=== PATIENT | female | born 1980 | race Caucasian/White ===

== ENCOUNTER 2021-02-09 18:12 | Emergency (ER) | payer OTHER, BC ==
--- NOTE | 2021-02-09 19:02 | XR ---
EXAMINATION TYPE: XR chest 2V DATE OF EXAM: 02/09/2021 COMPARISON: NONE HISTORY: Difficulty breathing TECHNIQUE: 2 views FINDINGS: There is coarse interstitial infiltrate in both lungs. Heart size is normal. Bony thorax is intact. There is no pleural effusion. IMPRESSION: Bilateral interstitial and patchy pneumonia. Normal heart.
--- NOTE | 2021-02-09 19:10 | ED ---
General Adult HPI - General Chief complaint: Shortness of Breath Stated complaint: SOB Time Seen by Provider: 02/09/21 18:32 Source: patient, EMS, RN notes reviewed, old records reviewed Mode of arrival: EMS Limitations: no limitations - History of Present Illness Initial comments: 41-year-old female presenting with 5 days of cough, mild dyspnea, sore throat, myalgias. Patient uncertain if she has been exposed to anyone with coronavirus. She has had fevers and some diarrhea. No vomiting. No central chest pain. Asked medical history of asthma. - Related Data Allergies Allergy/AdvReac Type Severity Reaction Status Date / Time codeine AdvReac Unknown Verified 02/09/21 18:26 sulfamethoxazole AdvReac Unknown Verified 02/09/21 18:26 [From Bactrim] trimethoprim [From Bactrim] AdvReac Unknown Verified 02/09/21 18:26 Review of Systems ROS Statement: Those systems with pertinent positive or pertinent negative responses have been documented in the HPI. ROS Other: All systems not noted in ROS Statement are negative. 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 Absent: tenderness, meningismus Respiratory exam: Present: rhonchi, decreased breath sounds. Absent: re spiratory distress Cardiovascular Exam: Present: normal rhythm, tachycardia GI/Abdominal exam: Present: soft. Absent: distended, tenderness, guarding Extremities exam: Present: normal inspection, normal capillary refill. Absent: pedal edema Neurological exam: Present: alert, oriented X3, CN II-XII intact. Absent: motor sensory deficit Psychiatric exam: Present: normal affect, normal mood Skin exam: Present: warm, dry, intact. Absent: cyanosis, diaphoretic Course Vital Signs 02/09/21 02/09/21 18:17 19:50 Temperature 100.6 F H Pulse Rate 112 H 107 H Respiratory 20 20 Rate Blood Pressure 135/80 136/71 O2 Sat by Pulse 92 L 93 L Oximetry Medical Decision Making - Medical Decision Making 41-year-old female with concern for coronavirus. Patient has an oxygenation of 92-93% on room air with no respiratory distress. X-ray does show minimal bilateral pneumonia. She has coronavirus positive. I did offer monoclonal an tibodies given the patient's medical conditions and she does qualify. She agrees with infusion. She will be transfused monoclonal antibodies. She will monitor symptoms at home. She will return with any worsening or changing symptoms. - Lab Data Lab Results 02/09/21 Range/Units 19:22 Coronavirus (PCR) Detected A (Not Detectd) Disposition Clinical Impression: Pneumonia due to COVID-19 virus Disposition: HOME SELF-CARE Condition: Fair Instructions (If sedation given, give patient instructions): Coronavirus Disease 2019 (COVID-19) Additional Instructions: Please take [id number] vitamin D, zinc and vitamin C. Please return with any worsening difficulty breathing or shortness of breath. Is patient prescribed a controlled substance at d/c from ED?: No Referrals: Usama Juarez DO [Primary Care Provider] - 1-2 days
[2021-02-09] MEDS ORDERED: BAMLANIVIMAB (EUA) 700 MG, ETESEVIMAB (EUA) 1,400 MG in SODIUM CHLORIDE 0.9% 50 ML IVPB ONE (20:20)
[2021-02-09 20:53] VITALS: RESP 18
[2021-02-09 23:09] VITALS: BP 128/74; PULSE 89; TEMP 99.3
== END 2021-02-09 23:09 | disposition home or self-care (01) ==
LOC: EC 18:12 → SUPCPDRO 18:12 → EC 23:09
DX: U07.1 COVID-19 (principal); J12.82 Pneumonia due to coronavirus disease 2019; F32.9 Major depressive disorder, single episode, unspecified; J45.909 Unspecified asthma, uncomplicated; Z87.891 Personal history of nicotine dependence
CPT/HCPCS: 87635; 71046; 99285; 96365; Q0245

== ENCOUNTER 2021-02-16 13:14 | Inpatient (IN) | payer OTHER, BC ==
--- NOTE | 2021-02-16 13:39 | ED ---
SOB HPI - General Chief Complaint: Shortness of Breath Stated Complaint: RUTH, Covid + Time Seen by Provider: 02/16/21 13:20 Source: EMS Mode of arrival: EMS Limitations: no limitations - History of Present Illness Initial Comments: 41-year-old female with past history of asthma, morbid obesity who presents emergency room with reported shortness of breath. Patient was diagnosed with Covid on February 09. She has had symptoms since February 05. She was seen in the emergency department and given Bam infusion. States that she is presenting again today for worsening breathing. Patient reports exertional shortness of breath. Denies any chest pain. No ALLERGIES swelling. No history of DVT or PE. She denies any current fevers. No nausea or vomiting. Since her pulse ox has been going into the 80s at home. No concerning for however has fuller d some persistent vaginal bleeding. She has not been using her inhalers. No other alleviating, precipitating or modifying factors - Related Data Home Medications Medication Instructions Recorded Confirmed Albuterol Sulfate [Ventolin HFA] 2 puff INHALATION RT-QID PRN 02/16/21 02/16/21 Previous Rx's Medication Instructions Recorded Apixaban [Eliquis] 5 mg PO BID 36 Days #84 tab 02/17/21 Apixaban [Eliquis] 10 mg PO BID tab 02/18/21 Budesonide-Formot 160-4.5 Mcg 2 puff INHALATION BID 30 Days #1 02/18/21 [Symbicort 160-4.5 Mcg Inhaler] inhaler Levofloxacin [Levaquin] 500 mg PO DAILY 5 Days #5 tab 02/18/21 dexAMETHasone ORAL [Hexadrol] 6 mg PO DAILY 5 Days #5 tab 02/18/21 Allergies Allergy/AdvReac Type Severity Reaction Status Date / Time codeine Allergy Unknown Verified 02/16/21 14:01 sulfamethoxazole Allergy Unknown Verified 02/16/21 14:01 [From Bactrim] trimethoprim [From Bactrim] Allergy Unknown Verified 02/16/21 14:01 Review of Systems ROS Statement: Those systems with pertinent positive or pertinent negative responses have been documented in the HPI. ROS Other: All systems not noted in ROS Statement are negative. 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 History of Any Multi-Drug Resistant Organisms: None Reported Additional Past Surgical History / Comment(s): Carpal tunnel realse in left hand, Gallbladder removal, Past Psychological History: Depression Smoking Status: Former smoker Past Alcohol Use History: None Reported Past Drug Use History: None Reported General Exam Limitations: no limitations Course Vital Signs 02/16/21 02/16/21 02/16/21 13:20 13:23 16:53 Temperature 98.0 F Pulse Rate 87 84 92 Respiratory 16 24 16 Rate Blood Pressure 140/89 110/61 O2 Sat by Pulse 96 92 L 95 Oximetry 02/16/21 02/16/21 02/17/21 18:24 23:00 00:00 Temperature 97.9 F Pulse Rate 88 89 93 Respiratory 16 15 16 Rate Blood Pressure 116/84 146/92 149/95 O2 Sat by Pulse 96 93 L 94 L Oximetry 02/17/21 04:00 Temperature Pulse Rate 73 Respiratory 16 Rate Blood Pressure 110/64 O2 Sat by Pulse 96 Oximetry Medical Decision Making - Medical Decision Making Upon arrival patient is placed into room 11. A thorough history and physical exam is performed. IV is established. Laboratory studies are conducted. He does demonstrate a d-dimer of 3. LDH is 1140. Chest x-ray demonstrates progression of diffuse airspace disease. Because of elevated d-dimer the patient is sent over for a CT of her chest. It does demonstrate acute PE involving the left lower lobe segmental and subsegmental branches. Also suspect less pronounced involvement of the right lower lobe. Diffuse patchy air opacities. This is discussed with the patient. She is having some vaginal bleeding however I do believe that she should be anticoagulated at this time. Patient is started on a heparin drip. Troponin is negative. BNP 33. I recommended admission for which I spoke with Dr. Law. Patient agreed to this plan and is currently awaiting a bed on the floor - Lab Data Result diagrams: 02/18/21 06:22 02/18/21 06:22 Lab Results 02/16/21 02/16/21 02/16/21 Range/Units 13:52 13:52 13:52 WBC 10.1 (3.8-10.6) k/uL RBC 5.55 H (3.80-5.40) m/uL Hgb 15.1 (11.4-16.0) gm/dL Hct 46.5 H (34.0-46.0) % MCV 83.7 (80.0-100.0) fL MCH 27.1 (25.0-35.0) pg MCHC 32.4 (31.0-37.0) g/dL RDW 15.2 (11.5-15.5) % Plt Count 273 (150-450) k/uL MPV 7.7 Neutrophils % 80 % Lymphocytes % 10 % Monocytes % 7 % Eosinophils % 1 % Basophils % 0 % Neutrophils # 8.1 H (1.3-7.7) k/uL Lymphocytes # 1.0 (1.0-4.8) k/uL Monocytes # 0.7 (0-1.0) k/uL Eosinophils # 0.1 (0-0.7) k/uL Basophils # 0.0 (0-0.2) k/uL PT 10.7 (9.0-12.0) sec INR 1.0 (<1.2) APTT 22.5 (22.0-30.0) sec D-Dimer 3.04 H (<0.60) mg/L FEU Sodium 143 (137-145) mmol/L Potassium 3.6 (3.5-5.1) mmol/L Chloride 107 (98-107) mmol/L Carbon Dioxide 26 (22-30) mmol/L Anion Gap 10 mmol/L BUN 12 (7-17) mg/dL Creatinine 0.76 (0.52-1.04) mg/dL Est GFR (CKD-EPI)AfAm >90 (>60 ml/min/1.73 sqM) Est GFR (CKD-EPI)NonAf >90 (>60 ml/min/1.73 sqM) Glucose 103 H (74-99) mg/dL Calcium 9.2 (8.4-10.2) mg/dL Magnesium 1.9 (1.6-2.3) mg/dL Total Bilirubin 0.8 (0.2-1.3) mg/dL AST 96 H (14-36) U/L ALT 162 H (4-34) U/L Alkaline Phosphatase 89 (38-126) U/L Lactate Dehydrogenase 1140 H (313-618) U/L Troponin I (0.000-0.034) ng/mL C-Reactive Protein 25.8 H (<10.0) mg/L NT-Pro-B Natriuret Pep pg/mL Total Protein 6.9 (6.3-8.2) g/dL Albumin 3.8 (3.5-5.0) g/dL Procalcitonin (0.02-0.09) ng/mL 02/16/21 02/16/21 02/16/21 Range/Units 13:52 13:52 13:52 WBC (3.8-10.6) k/uL RBC (3.80-5.40) m/uL Hgb (11.4-16.0) gm/dL Hct (34.0-46.0) % MCV (80.0-100.0) fL MCH (25.0-35.0) pg MCHC (31.0-37.0) g/dL RDW (11.5-15.5) % Plt Count (150-450) k/uL MPV Neutrophils % % Lymphocytes % % Monocytes % % Eosinophils % % Basophils % % Neutrophils # (1.3-7.7) k/uL Lymphocytes # (1.0-4.8) k/uL Monocytes # (0-1.0) k/uL Eosinophils # (0-0.7) k/uL Basophils # (0-0.2) k/uL PT (9.0-12.0) sec INR (<1.2) APTT (22.0-30.0) sec D-Dimer (<0.60) mg/L FEU Sodium (137-145) mmol/L Potassium (3.5-5.1) mmol/L Chloride (98-107) mmol/L Carbon Dioxide (22-30) mmol/L Anion Gap mmol/L BUN (7-17) mg/dL Creatinine (0.52-1.04) mg/dL Est GFR (CKD-EPI)AfAm (>60 ml/min/1.73 sqM) Est GFR (CKD-EPI)NonAf (>60 ml/min/1.73 sqM) Glucose (74-99) mg/dL Calcium (8.4-10.2) mg/dL Magnesium (1.6-2.3) mg/dL Total Bilirubin (0.2-1.3) mg/dL AST (14-36) U/L ALT (4-34) U/L Alkaline Phosphatase (38-126) U/L Lactate Dehydrogenase (313-618) U/L Troponin I <0.012 (0.000-0.034) ng/mL C-Reactive Protein (<10.0) mg/L NT-Pro-B Natriuret Pep 33 pg/mL Total Protein (6.3-8.2) g/dL Albumin (3.5-5.0) g/dL Procalcitonin 0.09 (0.02-0.09) ng/mL - EKG Data EKG Comments: EKG demonstrates a sinus rhythm with a ventricular rate of 95. [place] interval 126. QRS 78. QTC 414. No acute ST segment elevations or depressions Critical Care Time Critical Care Time: Yes Critical Care Time: 32 minutes Disposition Clinical Impression: COVID-19, Hypoxia, Bilateral pulmonary embolism Disposition: ADMITTED IP TO THIS [facility] Condition: Stable Is patient prescribed a controlled substance at d/c from ED?: No Decision to Admit Reason: Admit from EC Decision Date: 02/16/21 Decision Time: 18:28
[2021-02-16 14:15] LABS: Basophils % (A) 0 %; Eosinophils # (A) 0.1 k/uL (0-0.7); Eosinophils % (A) 1 %; HCT 46.5 % (34.0-46.0); HGB 15.1 gm/dL (11.4-16.0); Lymphocytes % (A) 10 %; MCH 27.1 pg (25.0-35.0); MCHC 32.4 g/dL (31.0-37.0); MCV 83.7 fL (80.0-100.0); Mean Platelet Volume 7.7; Monocytes # (A) 0.7 k/uL (0-1.0); Monocytes % (A) 7 %; Neutrophils # (A) 8.1 k/uL (1.3-7.7); Neutrophils % (A) 80 %; Platelet Count 273 k/uL (150-450); RBC 5.55 m/uL (3.80-5.40); RDW 15.2 % (11.5-15.5); WBC 10.1 k/uL (3.8-10.6)
[2021-02-16 14:33] LABS: ALT 162 U/L (4-34); AST 96 U/L (14-36); African American GFR (CKD) >90 (>60 ml/min/1.73 sqM); Albumin 3.8 g/dL (3.5-5.0); Alkaline Phosphatase 89 U/L (38-126); Anion Gap 10 mmol/L; Blood Urea Nitrogen 12 mg/dL (7-17); C Reactive Protein 25.8 mg/L (<10.0); Calcium 9.2 mg/dL (8.4-10.2); Carbon Dioxide 26 mmol/L (22-30); Chloride 107 mmol/L (98-107); Glucose 103 mg/dL (74-99); LDH 1140 U/L (313-618); Magnesium 1.9 mg/dL (1.6-2.3); Non-African American GFR(CKD) >90 (>60 ml/min/1.73 sqM); Potassium 3.6 mmol/L (3.5-5.1); Sodium 143 mmol/L (137-145); Total Bilirubin 0.8 mg/dL (0.2-1.3); Total Protein 6.9 g/dL (6.3-8.2)
[2021-02-16 14:38] LABS: Partial Thromboplastin Time 22.5 sec (22.0-30.0); Prothrombin Time 10.7 sec (9.0-12.0)
[2021-02-16 14:41] LABS: D-Dimer 3.04 mg/L FEU (<0.60)
--- NOTE | 2021-02-16 15:03 | XR ---
EXAMINATION TYPE: XR chest 1V portable DATE OF EXAM: 02/16/2021 COMPARISON: 02/09/2021. HISTORY: Worsening shortness of breath. TECHNIQUE: Single frontal view of the chest is obtained. FINDINGS: There is interval increase of bilateral diffuse moderate patchy opacities. No pleural effu angelo, or pneumothorax seen. The cardiac silhouette size is within normal limits. The osseous struc tures are intact. IMPRESSION: Progression of diffuse airspace disease.
[2021-02-16] MEDS ORDERED: HEPARIN SODIUM 1,000 UN/ML (10ML VL) IV PRN (18:00)
--- NOTE | 2021-02-16 18:02 | CT ---
EXAMINATION TYPE: CT chest angio for PE DATE OF EXAM: 02/16/2021 COMPARISON: Same day radiograph and prior. HISTORY: elevated d-dimer, SOB, +covid CT DLP: 763.1 mGycm Automated exposure control for dose reduction was used. CONTRAST: CT Chest for pulmonary embolism performed with with IV Contrast, patient injected with 100 mL of Isov ue 370. Coronal, sagittal and MIPS reformats were generated and reviewed. FINDINGS: LUNGS: There are bilateral diffuse moderate to marked patchy groundglass opacities. There is no ple ural effusion or pneumothorax seen. The tracheobronchial tree is patent. MEDIASTINUM: There is adequate enhancement of the pulmonary artery and its branches. There are multip le filling defects within the left lower lobe pulmonary artery segmental and subsegmental branches. T here are suspected fewer filling defects in the right lower lobe pulmonary artery segmental branches. There are no greater than 1 cm hilar or mediastinal lymph nodes. No pericardial effusion is seen. OTHER: Cholecystectomy is seen. No additional significant abnormality is seen. IMPRESSION: Acute PE involving the left lower lobe segmental and subsegmental branches. Also suspected less prono unced involvement of the right lower lobe. Diffuse patchy airspace opacities, concerning for Covid pneumonia. Findings were reported to caring physician by me at the time of dictation.
[2021-02-16] MEDS: HEPARIN SOD,PORK IN 0.45% NACL 25,000 UNIT in 0.45% NACL 1 250ML.BAG IV SCH (18:16)
[2021-02-16] MEDS: HEPARIN SODIUM 1,000 UN/ML (10ML VL) IV ONE ×2 (18:17→18:18)
[2021-02-16] MEDS ORDERED: NALOXONE 0.4 MG/ML 1 ML VIAL IV PRN ×2 (18:29→18:48)
[2021-02-16] MEDS ORDERED: ONDANSETRON 4 MG/2 ML VIAL IVP PRN (18:48)
[2021-02-16] MEDS ORDERED: ACETAMINOPHEN TAB 325 MG TAB PO PRN (18:48)
[2021-02-16] MEDS ORDERED: BENZONATATE 100 MG CAP PO PRN (18:49)
[2021-02-16] MEDS ORDERED: IPRATROPIUM-ALBUTEROL 3 ML NEB INHALATION PRN (18:49)
[2021-02-16] MEDS ORDERED: ALBUTEROL HFA INHALER INHALATION PRN (18:49)
--- NOTE | 2021-02-16 18:50 | P.HPIM ---
History of Present Illness H&P Date: 02/16/21 Chief Complaint: Dyspnea 41-year-old woman with medical history of polycystic ovarian syndrome, exercise- induced asthma presented with dyspnea on exertion. Patient was diagnosed with Covid on 02/09, had symptoms starting on 02/05. On 02/09 she received BAM. She went home, however, started to notice increasing dyspnea on exertion. It got to the point where she had very limited exercise tolerance. For this reason, she presented to the emergency room. While patient was at rest patient was 94% on room air, however, during ambulation she desaturated down to 82%. Her labs came back with a pertinent lab value of 3.0 for d-dimer, prompting CTA of the chest. This image demonstrated left lower lobe segmental and subsegmental branch pulmonary embolisms, along with possible involvement of the right lower lobe as well. She was started on a heparin drip, medicine was asked to admit the patient for further management. She reports some chest tightness, but no chest pain. She reports dyspnea on exertion. She denies fevers, chills, nausea, vomiting, abdominal pain, diar kristin, constipation, palpitations, syncope, presyncope, cough, dysuria, dyschezia, numbness/weakness of the extremities.. 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 History of Any Multi-Drug Resistant Organisms: None Reported Additional Past Surgical History / Comment(s): Carpal tunnel realse in left hand, Gallbladder removal, Past Psychological History: Depression Smoking Status: Former smoker Past Alcohol Use History: None Reported Past Drug Use History: None Reported Medications and Allergies Home Medications Medication Instructions Recorded Confirmed Type Cryselle-28 1 tab PO DAILY 02/09/21 02/16/21 History Albuterol Sulfate [Ventolin HFA] 2 puff INHALATION RT-QID PRN 02/16/21 02/16/21 History Benzonatate [Benzonatate Perle] 200 mg PO TID PRN 02/16/21 02/16/21 History Levofloxacin [Levaquin] 500 mg PO DAILY 02/16/21 02/16/21 History methylPREDNISolone Dose Pack See Taper PO DIRECTED 02/16/21 02/16/21 History [Medrol Dose Pack] Allergies Allergy/AdvReac Type Severity Reaction Status Date / Time codeine Allergy Unknown Verified 02/16/21 14:01 sulfamethoxazole Allergy Unknown Verified 02/16/21 14:01 [From Bactrim] trimethoprim [From Bactrim] Allergy Unknown Verified 02/16/21 14:01 Physical Exam Osteopathic Statement: *. No significant issues noted on an osteopathic structural exam other than those noted in the History and Physical/Consult. Vitals: Vital Signs Temp Pulse Resp BP Pulse Ox 02/16/21 18:24 97.9 F 88 16 116/84 96 02/16/21 16:53 98.0 F 92 16 110/61 95 02/16/21 13:23 84 24 92 L 02/16/21 13:20 87 16 140/89 96 Intake and Output 02/16/21 02/16/21 02/16/21 06:59 14:59 22:59 Other: Weight 156.489 kg Gen: awake, alert, obese HEENT: normocephalic, atraumatic, good hearing acuity, moist mucous membranes Resp: good air exchange, breathing comfortably with no accessory muscle use, clear to auscultation bilaterally without wheezes or crackles CVS: good distal perfusion x 4, regular rate and rhythm without murmurs GI: soft, NTTP, ND, appropriate bowel sounds : no SPT, no CVAT, allen catheter is not present MSK: no pitting edema, no clubbing Neuro: non-focal, moving all extremities Psych: cooperative, euthymic mood Results CBC & Chem 7: 02/16/21 13:52 02/16/21 13:52 Labs: Abnormal Lab Results - Last 24 Hours (Table) 02/16/21 02/16/21 02/16/21 Range/Units 13:52 13:52 13:52 RBC 5.55 H (3.80-5.40) m/uL Hct 46.5 H (34.0-46.0) % Neutrophils # 8.1 H (1.3-7.7) k/uL D-Dimer 3.04 H (<0.60) mg/L FEU Glucose 103 H (74-99) mg/dL AST 96 H (14-36) U/L ALT 162 H (4-34) U/L Lactate Dehydrogenase 1140 H (313-618) U/L C-Reactive Protein 25.8 H (<10.0) mg/L Assessment and Plan Assessment: Acute pulmonary embolism Hypoxia on ambulation Covid pneumonitis -Admit to telemetry, contact/droplet precautions -Oxygen when necessary -DuoNeb's when necessary -We'll defer dexamethasone at this time given saturation 94% on room air and likely mechanism of hypoxia on ambulation his pulmonary embolism -We'll defer remdesivir this patient is outside the window benefit -Heparin drip -Pulmonary consultation -Echo pending -BNP pending -Up until one week ago, patient was on oral contraceptives, these should be permanently discontinued History of exercise-induced asthma -DuoNeb's when necessary as above Polycystic ovarian disease -Further use of oral contraceptives or hormonal-based contraceptives are contraindicated Patient is a full code Patient is on DVT prophylaxis with therapeutic and a coagulation
[2021-02-17 04:28] LABS: Basophils % (A) 1 %; Eosinophils # (A) 0.1 k/uL (0-0.7); Eosinophils % (A) 2 %; HCT 45.3 % (34.0-46.0); HGB 15.7 gm/dL (11.4-16.0); INR 1.2 (<1.2); Lymphocytes # (A) 1.3 k/uL (1.0-4.8); Lymphocytes % (A) 17 %; MCH 28.6 pg (25.0-35.0); MCHC 34.5 g/dL (31.0-37.0); MCV 82.8 fL (80.0-100.0); Mean Platelet Volume 7.9; Monocytes # (A) 0.5 k/uL (0-1.0); Monocytes % (A) 6 %; Neutrophils # (A) 5.7 k/uL (1.3-7.7); Neutrophils % (A) 73 %; Platelet Count 170 k/uL (150-450); Prothrombin Time 12.2 sec (9.0-12.0); RBC 5.47 m/uL (3.80-5.40); RDW 14.9 % (11.5-15.5); WBC 7.8 k/uL (3.8-10.6)
[2021-02-17] MEDS: HEPARIN SOD,PORK IN 0.45% NACL 25,000 UNIT in 0.45% NACL 1 250ML.BAG IV SCH (05:12)
[2021-02-17 08:05] LABS: African American GFR (CKD) >90 (>60 ml/min/1.73 sqM); Anion Gap 13 mmol/L; Blood Urea Nitrogen 11 mg/dL (7-17); Carbon Dioxide 17 mmol/L (22-30); Chloride 111 mmol/L (98-107); Glucose 87 mg/dL (74-99); Non-African American GFR(CKD) >90 (>60 ml/min/1.73 sqM); Sodium 141 mmol/L (137-145)
[2021-02-17 08:24] LABS: Potassium 4.8 mmol/L (3.5-5.1)
[2021-02-17 08:25] LABS: Magnesium 2.1 mg/dL (1.6-2.3)
--- NOTE | 2021-02-17 11:24 | P.CNPUL ---
History of Present Illness Consult date: 02/17/21 Reason for consult: dyspnea, pneumonia History of present illness: 41-year-old female patient, these with a BMI of 61, known history of polycystic ovary disease, and uses asthma, diagnosed having covert 19 on 02/09/2021, symptoms started 02/05/2021 and the patient received monoclonal antibodies with BAM On 02/09/2021. The patient came into the emergency room with shortness of breath. The patient had a pulse ox of 94% on room air and during ablation. Prescription of 82%. CT of the chest was done and it showed subsegmental branch pulmonary embolism involving the left lower lobe and right lower lobe. Patient was started on IV heparin. Patient also had bilateral disease consistent with community related pneumonia. D-dimer is at 3.04. Hemoglobin is at 15.1. BUN and creatinine are normal, LDH is 1140 with a CRP of 25 and a troponin is at 0.012 Review of Systems Constitutional: Denies chills, Denies fever Eyes: denies as per HPI, denies blurred vision, denies bulging eye, denies decreased vision, denies diplopia, denies discharge, denies dry eye, denies irritation, denies itching, denies pain, denies photophobia, denies loss of pe ripheral vision, denies loss of vision, denies tunnel vision/blind spots Ears: deny: decreased hearing, ear discharge, earache, tinnitus Ears, nose, mouth and throat: Reports as per HPI Breasts: absent: as per HPI, change in shape, gynecomastia, masses, nipple discharge, pain, skin changes, swelling Cardiovascular: Reports decreased exercise tolerance, Reports dyspnea on exertion Respiratory: Reports cough, Reports dyspnea Gastrointestinal: Reports as per HPI Genitourinary: Reports as per HPI Menstruation: Reports as per HPI Musculoskeletal: Reports as per HPI Musculoskeletal: absent: ankle pain, ankle stiffness, ankle swelling, as per HPI, elbow pain, elbow stiffness, elbow swelling, foot pain, foot stiffness, foot swelling, hand pain, hand stiffness, hand swelling, hip pain, hip stiffness, hip swelling, knee pain, knee stiffness, knee swelling, shoulder pain, shoulder stiffness, shoulder swelling, wrist pain, wrist stiffness, wrist swelling Integumentary: Reports as per HPI Neurological: Reports as per HPI Psychiatric: Reports as per HPI Endocrine: Reports as per HPI Hematologic/Lymphatic: Reports as per HPI Allergic/Immunologic: Reports as per HPI 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 History of Any Multi-Drug Resistant Organisms: None Reported Additional Past Surgical History / Comment(s): Carpal tunnel realse in left hand, Gallbladder removal, Past Psychological History: Depression Smoking Status: Former smoker Past Alcohol Use History: None Reported Past Drug Use History: None Reported Medications and Allergies Home Medications Medication Instructions Recorded Confirmed Type Cryselle-28 1 tab PO DAILY 02/09/21 02/16/21 History Albuterol Sulfate [Ventolin HFA] 2 puff INHALATION RT-QID PRN 02/16/21 02/16/21 History Benzonatate [Benzonatate Perle] 200 mg PO TID PRN 02/16/21 02/16/21 History Levofloxacin [Levaquin] 500 mg PO DAILY 02/16/21 02/16/21 History methylPREDNISolone Dose Pack See Taper PO DIRECTED 02/16/21 02/16/21 History [Medrol Dose Pack] Allergies Allergy/AdvReac Type Severity Reaction Status Date / Time codeine Allergy Unknown Verified 02/16/21 14:01 sulfamethoxazole Allergy Unknown Verified 02/16/21 14:01 [From Bactrim] trimethoprim [From Bactrim] Allergy Unknown Verified 02/16/21 14:01 Physical Exam Vitals: Vital Signs Temp Pulse Pulse Resp BP BP Pulse Ox 02/17/21 11:12 98.4 F 88 18 129/81 97 02/17/21 08:00 98.5 F 99 18 138/80 93 L 02/17/21 05:26 18 02/17/21 05:21 98.1 F 80 18 122/67 95 02/17/21 04:00 73 16 110/64 96 02/17/21 00:00 93 16 149/95 94 L 02/16/21 23:00 89 15 146/92 93 L 02/16/21 18:24 97.9 F 88 16 116/84 96 02/16/21 16:53 98.0 F 92 16 110/61 95 02/16/21 13:23 84 24 92 L 02/16/21 13:20 87 16 140/89 96 Intake and Output 02/16/21 02/17/21 02/17/21 22:59 06:59 14:59 Intake Total 233.670 219.689 Balance 233.670 219.689 Intake: Intake, IV Titration 233.670 101.689 Amount Heparin Sod,Pork in 0.45% 233.670 101.689 NaCl 25,000 unit In 0.45 % NaCl 1 250ml.bag @ 14.7 UNITS/KG/HR 23.004 mls/ hr IV .[id number] [facility] Rx#: [id number] Oral 118 Other: Voiding Method Bedside Commode Weight 156.489 kg Gen: awake, alert, obese HEENT: normocephalic, atraumatic, good hearing acuity, moist mucous membranes Resp: good air exchange, breathing comfortably with no accessory muscle use, clear to auscultation bilaterally without wheezes or crackles CVS: good distal perfusion x 4, regular rate and rhythm without murmurs GI: soft, NTTP, ND, appropriate bowel sounds : no SPT, no CVAT, allen catheter is not present MSK: no pitting edema, no clubbing Neuro: non-focal, moving all extremities Psych: cooperative, euthymic mood Results - Laboratory Findings CBC and BMP: 02/17/21 03:48 02/17/21 03:48 PT/INR, D-dimer PT 12.2 sec (9.0-12.0) H 02/17/21 03:48 INR 1.2 (<1.2) H 02/17/21 03:48 D-Dimer 3.04 mg/L FEU (<0.60) H 02/16/21 13:52 Abnormal lab findings: Abnormal Labs 02/16/21 02/16/21 02/16/21 13:52 13:52 13:52 RBC 5.55 H Hct 46.5 H Neutrophils # 8.1 H PT INR APTT D-Dimer 3.04 H Chloride Carbon Dioxide Glucose 103 H AST 96 H ALT 162 H Lactate Dehydrogenase 1140 H C-Reactive Protein 25.8 H 02/16/21 02/17/21 02/17/21 22:52 03:48 03:48 RBC 5.47 H Hct Neutrophils # PT INR APTT 72.2 H D-Dimer Chloride 111 H Carbon Dioxide 17 L Glucose AST ALT Lactate Dehydrogenase C-Reactive Protein 02/17/21 02/17/21 03:48 08:57 RBC Hct Neutrophils # PT 12.2 H INR 1.2 H APTT 85.9 H D-Dimer Chloride Carbon Dioxide Glucose AST ALT Lactate Dehydrogenase C-Reactive Protein - Diagnostic Findings Chest x-ray: image reviewed CT scan - chest: image reviewed Assessment and Plan Plan: 1 acute bilateral COVID 19 pneumonia with bilateral air space disease as evident on the CT angios the chest, post BAM 2 acute bilateral subsegmental pulmonary embolism, probably coagulability secondary to community related infection 3 acute hypoxic respiratory failure, currently on oxygen at 2 L 4 morbid obesity with a BMI of 61 5 polycystic ovary syndrome Plan Put the patient on Decadron 6 mg by mouth daily Out of the window for the Remdesivir stop IV heparin and put the patient on Eliquis 10 mg by mouth twice a day Awaiting echocardiogram Doppler of the lower extremities we'll continue to observe, titrate the FiO2 to maintain saturation above 90% The patient can be potentially discharged home if the pulse ox remains above 90% on room air oxygen.
--- NOTE | 2021-02-17 12:36 | US ---
EXAMINATION TYPE: US venous doppler duplex LE BI DATE OF EXAM: 02/17/2021 12:16 PM COMPARISON: CT CLINICAL HISTORY: COVID. PE SIDE PERFORMED: Bilateral TECHNIQUE: The lower extremity deep venous system is examined utilizing real time linear array sonog hitesh with graded compression, doppler sonography and color-flow sonography. VESSELS IMAGED: Technically limited US due to very large body habitus Common Femoral Vein Deep Femoral Vein Greater Saphenous Vein * Femoral Vein Popliteal Vein Proximal Calf Veins (* superficial vessels) Right Leg: Negative for DVT Left Leg: Negative for DVT IMPRESSION: Limited exam as noted by the technologist demonstrates no diagnostic evidence of DVT as v isualized.
[2021-02-17] MEDS: APIXABAN 5 MG TAB PO SCH ×2 (12:45→20:07)
[2021-02-17] MEDS: dexAMETHasone 2 MG TAB PO SCH (12:45)
--- NOTE | 2021-02-17 15:36 | P.PN ---
Subjective no chest pain no abdominal pain, no nausea or vomiting. On 3 L of oxygen. Objective - Vital Signs Vital signs: Vital Signs Temp 98.4 F 02/17/21 11:12 Pulse 88 02/17/21 11:12 Resp 18 02/17/21 11:12 BP 129/81 02/17/21 11:12 Pulse Ox 97 02/17/21 11:12 Intake & Output 02/16/21 02/17/21 02/17/21 18:59 06:59 18:59 Intake Total 233.670 319.689 Balance 233.670 319.689 Weight 156.489 kg 156.489 kg Intake: Intake, IV Titration 233.670 101.689 Amount Heparin Sod,Pork in 0.45% 233.670 101.689 NaCl 25,000 unit In 0.45 % NaCl 1 250ml.bag @ 14.7 UNITS/KG/HR 23.004 mls/ hr IV .[id number] [facility] Rx#: [id number] Oral 218 Other: Voiding Method Bedside Commode # Voids 1 # Bowel Movements 1 - Exam Constitutional: No acute distress, conversant, pleasant Eyes: Anicteric sclerae, moist conjunctiva, no lid-lag, PERRLA ENMT: NC/AT Neck:Supple, FROM, no masses, or JVD Lungs: Decreased breath sounds, no wheezing Cardiovascular: Heart regular in rate and rhythm, No murmurs, gallops, or rubs no peripheral edema Abdominal: Soft Nontender, nom distended, no guarding, no rebound or rigidity, Normoactive bowel sounds No hepatomegaly, No splenomegaly, No palpable mass No abdominal wall hernia noted Extremities:No digital cyanosis No clubbing, Pedal pulses intact and symmetrical Radial pulses intact and symmetrical Normal gait and station, No calf tenderness Psychiatric: Alert and oriented to person, place and time, Appropriate affect Intact judgement Neuro: Muscles Strength 5/5 in all 4 extremities, Sensation to light touch grossly present throughout, Cranial nerves II-XII grossly intact. No focal sensory deficits - Labs CBC & Chem 7: 02/17/21 03:48 02/17/21 03:48 Labs: Abnormal Lab Results - Last 24 Hours (Table) 02/16/21 02/17/21 02/17/21 Range/Units 22:52 03:48 03:48 RBC 5.47 H (3.80-5.40) m/uL PT (9.0-12.0) sec INR (<1.2) APTT 72.2 H (22.0-30.0) sec Chloride 111 H (98-107) mmol/L Carbon Dioxide 17 L (22-30) mmol/L 02/17/21 02/17/21 Range/Units 03:48 08:57 RBC (3.80-5.40) m/uL PT 12.2 H (9.0-12.0) sec INR 1.2 H (<1.2) APTT 85.9 H (22.0-30.0) sec Chloride (98-107) mmol/L Carbon Dioxide (22-30) mmol/L Assessment and Plan Plan: Acute pulmonary embolism Hypoxia on ambulation Covid pneumonitis -Oxygen titrate down as indicated -Ayla'jenn -Pulmonary consultation, input appreciated -Echo pending History of exercise-induced asthma Oxygen bronchodilators as indicated Polycystic ovarian disease -Further use of oral contraceptives or hormonal-based contraceptives are contraindicated Acute bilateral subsegmental pulmonary embolism without evidence of cor pulmonale: Continue oral Eliquis Titrate oxygen down as tolerated, she is down to 3 L Patient is a full code Patient is on DVT prophylaxis with therapeutic and a coagulation Disposition : Home once clinically better likely in 1-2 days, continue to titrate oxygen down
[2021-02-17] MEDS: SYMBICORT 160-4.5 MCG INHALER INHALATION SCH (19:59)
[2021-02-17] MEDS: ALBUTEROL HFA INHALER INHALATION PRN (19:59)
[2021-02-18 05:39] VITALS: BP 119/72; RESP 16; TEMP 97.9
[2021-02-18 08:12] LABS: Basophils % (A) 0 %; Eosinophils % (A) 0 %; HCT 40.9 % (34.0-46.0); HGB 14.1 gm/dL (11.4-16.0); Lymphocytes # (A) 0.9 k/uL (1.0-4.8); Lymphocytes % (A) 10 %; MCH 28.2 pg (25.0-35.0); MCHC 34.5 g/dL (31.0-37.0); MCV 81.8 fL (80.0-100.0); Monocytes # (A) 0.4 k/uL (0-1.0); Monocytes % (A) 5 %; Neutrophils # (A) 6.7 k/uL (1.3-7.7); Neutrophils % (A) 82 %; Platelet Count 209 k/uL (150-450); RDW 14.8 % (11.5-15.5); WBC 8.2 k/uL (3.8-10.6)
[2021-02-18 08:14] LABS: ALT 105 U/L (4-34); AST 39 U/L (14-36); African American GFR (CKD) >90 (>60 ml/min/1.73 sqM); Albumin 3.4 g/dL (3.5-5.0); Alkaline Phosphatase 80 U/L (38-126); Anion Gap 8 mmol/L; Blood Urea Nitrogen 7 mg/dL (7-17); Carbon Dioxide 25 mmol/L (22-30); Chloride 107 mmol/L (98-107); Glucose 135 mg/dL (74-99); Non-African American GFR(CKD) >90 (>60 ml/min/1.73 sqM); Potassium 3.9 mmol/L (3.5-5.1); Sodium 140 mmol/L (137-145); Total Bilirubin 0.8 mg/dL (0.2-1.3); Total Protein 6.4 g/dL (6.3-8.2)
[2021-02-18] MEDS: dexAMETHasone 2 MG TAB PO SCH (08:17)
[2021-02-18] MEDS: APIXABAN 5 MG TAB PO SCH (08:17)
[2021-02-18 08:21] VITALS: PULSE 87
[2021-02-18] MEDS: SYMBICORT 160-4.5 MCG INHALER INHALATION SCH (09:10)
[2021-02-18] MEDS: ALBUTEROL HFA INHALER INHALATION PRN (09:10)
--- NOTE | 2021-02-18 11:38 | P.DS ---
Providers Date of admission: 02/16/21 18:29 Expected date of discharge: 02/18/21 Attending physician: Jagdish Law MD Consults: 02/16/21 18:30 Consult Physician Urgent Consulting Provider: Nicolas De Guzman Reason/Comments: acute hypoxic resp failure, acute covid pna, acute b/l pe Do you want consulting provider notified?: Yes Primary care physician: Usama Juarez Hospital Course: HPI: 41-year-old woman with medical history of polycystic ovarian syndrome, exercise- induced asthma presented with dyspnea on exertion. Patient was diagnosed with Covid on 02/09, had symptoms starting on 02/05. On 02/09 she received BAM. She went home, however, started to notice increasing dyspnea on exertion. It got to the point where she had very limited exercise tolerance. For this reason, she presented to the emergency room. While patient was at rest patient was 94% on room air, however, during ambulation she desaturated down to 82%. Her labs came back with a pertinent lab value of 3.0 for d-dimer, prompting CTA of the chest. This image demonstrated left lower lobe segmental and subsegmental branch pulmonary embolisms, along with possible involvement of the right lower lobe as well. She was started on a heparin drip, medicine was asked to admit the patient for further management. She reports some chest tightness, but no chest pain. She reports dyspnea on ex ertion. She denies fevers, chills, nausea, vomiting, abdominal pain, diarrhea, constipation, palpitations, syncope, presyncope, cough, dysuria, dyschezia, numbness/weakness of the extremities Hospital course and treatment: Patient is admitted to the hospital with shortness of breath. She was diagnosed with covert 19 02/09/2021. She desaturated and was found to have O2 saturation 82%. She was found to have elevated d-dimer. CT chest was positive for pulmonary embolism left lower lobe segmental and subsegmental branch pulmonary embolisms, along with possible involvement of the right lower lobe as well. She was started on heparin drip. Pulmonology consulted she was continued on Decadron oxygen and bronchodilators. Heparin was switched adequacy. Was titrated off oxygen and was tolerated well. Lower extension to Dopplers were negative for DVT. She continued to improve. She feels much better. She will be discharged home on adequate's. She will also be discharged home on Levaquin and dexamethasone. She will follow up with PCP as an outpatient Diagnoses Upon discharge: 1. Acute pulmonary embolism with hypoxia without cor pulmonale 2. Covid pneumonitis 3. Asthma without exacerbation 4. Polycystic ovarian 5. Morbid obesity BMI 58.4 Patient Condition at Discharge: Stable Plan - Discharge Summary Discharge Rx Participant: No New Discharge Prescriptions: New Apixaban [Eliquis] 5 mg PO BID 36 Days #84 tab Apixaban [Eliquis] 10 mg PO BID tab dexAMETHasone ORAL [Hexadrol] 6 mg PO DAILY 5 Days #5 tab Continue Albuterol Sulfate [Ventolin HFA] 2 puff INHALATION RT-QID PRN PRN Reason: Shortness Of Breath Levofloxacin [Levaquin] 500 mg PO DAILY 5 Days #5 tab Discontinued Cryselle-28 1 tab PO DAILY methylPREDNISolone Dose Pack [Medrol Dose Pack] See Taper PO DIRECTED Benzonatate [Benzonatate Perle] 200 mg PO TID PRN PRN Reason: Cough Discharge Medication List Albuterol Sulfate [Ventolin HFA] 2 puff INHALATION RT-QID PRN 02/16/21 [History] Apixaban [Eliquis] 5 mg PO BID 36 Days #84 tab 02/17/21 [Rx] Apixaban [Eliquis] 10 mg PO BID tab 02/18/21 [Rx] Levofloxacin [Levaquin] 500 mg PO DAILY 5 Days #5 tab 02/18/21 [Rx] dexAMETHasone ORAL [Hexadrol] 6 mg PO DAILY 5 Days #5 tab 02/18/21 [Rx] Follow up Appointment(s)/Referral(s): Usama Juarez DO [Primary Care Provider] - 1-2 days Activity/Diet/Wound Care/Special Instructions: Cathi is in [facility] pharmacy, free month coupon applied and can use $10 copay card for monthly refills. Discharge Disposition: HOME SELF-CARE
--- NOTE | 2021-02-18 11:55 | P.PN ---
Subjective Progress Note Date: 02/18/21 41-year-old female patient, these with a BMI of 61, known history of polycystic ovary disease, and uses asthma, diagnosed having covert 19 on 02/09/2021, symptoms started 02/05/2021 and the patient received monoclonal antibodies with BAM On 02/09/2021. The patient came into the emergency room with shortness of breath. The patient had a pulse ox of 94% on room air and during ablation. Prescription of 82%. CT of the chest was done and it showed subsegmental branch pulmonary embolism involving the left lower lobe and right lower lobe. Patient was started on IV heparin. Patient also had bilateral disease consistent with community related pneumonia. D-dimer is at 3.04. Hemoglobin is at 15.1. BUN and creatinine are normal, LDH is 1140 with a CRP of 25 and a troponin is at 0.012 On today's evaluation of 02/18/2021, the patient is doing well on room air oxygen. No new complaints. No shortness of breath. No significant cough sputum production. No other issues for now. The patient was seen in consultation yesterday. The blood work today's essentially within normal limits. Doppler of the lower extremity was negative for any DVT. Objective - Vital Signs Vital signs: Vital Signs Temp 97.9 F 02/18/21 08:00 Pulse 87 02/18/21 08:00 Resp 16 02/18/21 08:00 BP 119/72 02/18/21 08:00 Pulse Ox 91 L 02/18/21 08:00 Intake & Output 02/17/21 02/18/21 02/18/21 18:59 06:59 18:59 Intake Total 559.689 0 Balance 559.689 0 Weight 149.5 kg Intake: Intake, IV Titration 101.689 Amount Heparin Sod,Pork in 0.45% 101.689 NaCl 25,000 unit In 0.45 % NaCl 1 250ml.bag @ 14.7 UNITS/KG/HR 23.004 mls/ hr IV .[id number] [facility] Rx#: [id number] Oral 458 0 Other: Voiding Method Bedside Commode # Voids 2 2 # Bowel Movements 1 - Exam Gen: awake, alert, obese HEENT: normocephalic, atraumatic, good hearing acuity, moist mucous membranes Resp: good air exchange, breathing comfortably with no accessory muscle use, clear to auscultation bilaterally without wheezes or crackles CVS: good distal perfusion x 4, regular rate and rhythm without murmurs GI: soft, NTTP, ND, appropriate bowel sounds : no SPT, no CVAT, allen catheter is not present MSK: no pitting edema, no clubbing Neuro: non-focal, moving all extremities Psych: cooperative, euthymic mood - Labs CBC & Chem 7: 02/18/21 06:22 02/18/21 06:22 Labs: Abnormal Lab Results - Last 24 Hours (Table) 02/18/21 02/18/21 Range/Units 06:22 06:22 Lymphocytes # 0.9 L (1.0-4.8) k/uL Creatinine 0.51 L (0.52-1.04) mg/dL Glucose 135 H (74-99) mg/dL AST 39 H (14-36) U/L ALT 105 H (4-34) U/L Albumin 3.4 L (3.5-5.0) g/dL Assessment and Plan Plan: 1 acute bilateral COVID 19 pneumonia with bilateral air space disease as evident on the CT angios the chest, post BAM, the patient remains on room air oxygen with pulse ox above 90% 2 acute bilateral subsegmental pulmonary embolism, probably coagulability secondary to community related infection 3 acute hypoxic respiratory failure, currently on oxygen at 2 L 4 morbid obesity with a BMI of 61 5 polycystic ovary syndrome Plan Complete the course of Decadron 6 mg by mouth daily for a total of 10 days Out of the window for the Remdesivir Eliquis 10 mg by mouth twice a day, the patient will be transitioned to 5 mg by mouth twice a day with a week's time. Awaiting echocardiogram Doppler of the lower extremities The patient can be potentially discharged home if the pulse ox remains above 90% on room air oxygen. We'll be glad to follow-up this patient 3-4 weeks time in the office
== END 2021-02-18 18:00 | disposition home or self-care (01) | DRG 177 ==
LOC: EC 13:14 → 3SCARD 18:29
PROVIDERS: ADMIT Internal Medicine; ATTEND Internal Medicine
DX: U07.1 COVID-19 (principal); J12.82 Pneumonia due to coronavirus disease 2019; I26.94 Multiple subsegmental thrombotic pulmonary emboli without acute cor pulmonale; J96.01 Acute respiratory failure with hypoxia; Z68.44 Body mass index [BMI] 60.0-69.9, adult; E66.01 Morbid (severe) obesity due to excess calories; J45.990 Exercise induced bronchospasm; E28.2 Polycystic ovarian syndrome; Z79.3 Long term (current) use of hormonal contraceptives; Z79.899 Other long term (current) drug therapy; Z87.891 Personal history of nicotine dependence; Z90.49 Acquired absence of other specified parts of digestive tract; Z87.19 Personal history of other diseases of the digestive system; Z87.39 Personal history of other diseases of the musculoskeletal system and connective tissue; Z86.59 Personal history of other mental and behavioral disorders; Z98.890 Other specified postprocedural states; Z88.5 Allergy status to narcotic agent; Z88.2 Allergy status to sulfonamides
CPT/HCPCS: 36415; 71045; 71275; 80048; 80053; 83615; 83735; 83880; 84145; 84484; 85025; 85379; 85610; 85730; 86140; 93005; 93970; 94640; 96374; 99285